=== PATIENT | female | born 1950 | race Caucasian/White ===

== ENCOUNTER 2017-04-13 09:32 | Emergency (ER) | payer MEDICAID, OTHER ==
[~2017-04-13] VITALS: Ht 167.6 cm; Wt 56.2 kg
[2017-04-13 09:52] VITALS: BP 113/61
--- NOTE | 2017-04-13 09:52 | NUR ---
PATIENT BIB BY CAREGIVER FROM [facility] FOR A CHECK UP. PT'S CAREGIVER STATES THAT PATIENT FELL YESTERDAY WHILE TRYING TO MOVE FROM HER BED TO HER WHEELCHAIR. PATIENT HIT HER HEAD FROM THE FALL. BRUISING AND SWELLING NOTED TO THE RIGHT FOREHEAD. DENIES N/V/D; SKIN IS PINK/WARM/DRY; AAOX4 WITH EVEN AND STEADY GAIT; LUNGS CLEAR BL; HR EVEN AND REGULAR; PT DENIES ANY FEVER, CP, SOB, OR COUGH AT THIS TIME; PATIENT STATES PAIN OF 0/10 AT THIS TIME; VSS; PATIENT POSITIONED FOR COMFORT; HOB ELEVATED; BEDRAILS UP X2; BED DOWN. ER MD MADE AWARE OF PT STATUS.
[2017-04-13 11:20] VITALS: BP 130/68
--- NOTE | 2017-04-13 11:20 | NUR ---
Patient discharged with v/s stable. Written and verbal after care instructions given and explained. Patient verbalized understanding. Ambulatory with steady gait. All questions addressed prior to discharge. Advised to follow up with PMD.
== END 2017-04-13 11:20 | disposition home or self-care (01) ==
LOC: MED 09:32
DX: S00.12XA Contusion of left eyelid and periocular area, initial encounter (principal); I10 Essential (primary) hypertension; W05.0XXA Fall from non-moving wheelchair, initial encounter; Y93.89 Activity, other specified; Y92.89 Other specified places as the place of occurrence of the external cause; Y99.8 Other external cause status
CPT/HCPCS: 70450; 99284

== ENCOUNTER 2019-04-20 10:16 | Emergency (ER) | payer MEDICARE, MEDICAID ==
[~2019-04-20] VITALS: Ht 154.9 cm; Wt 54.4 kg
--- NOTE | 2019-04-20 10:27 | NUR ---
PT WHEELCHAIRED TO ER BED 10
[2019-04-20 10:34] VITALS: BP 134/81
--- NOTE | 2019-04-20 10:41 | NUR ---
RECEIVED A 68/F VIA WHEELCHAIR FROM TRIAGE. PT PRESENTS WITH CAREGIVER DUE TO INTELLECUTAL DISABILITY. CAREGIVER REPORTS RT LOWER LEG REDNESS AND SWELLING OVER THE PAST WEEK; REPORTS SUDDEN DECREASE IN SWELLING AND REDNESS YESTERDAY. NO REDNESS/SWELLING NOTED TO LEG. IN BED FOR MSE, WITH CAREGIVER AT BEDSIDE.
--- NOTE | 2019-04-20 11:50 | NUR ---
ALL IMAGING RESULTS BACK. INFORMED DR GALVEZ.
[2019-04-20 12:26] VITALS: BP 134/81
--- NOTE | 2019-04-20 12:27 | NUR ---
Patient discharged with v/s stable. Written and verbal after care instructions given and explained. Patient alert, oriented and verbalized understanding of instructions. Wheel Chair Assisted with by caregiver. All questions addressed prior to discharge. ID band removed. Patient advised to follow up with PMD. Rx of MOTRIN given. Patient educated on indication of medication including possible reaction and side effects. Opportunity to ask questions provided and answered.
== END 2019-04-20 12:27 | disposition home or self-care (01) ==
LOC: MED 10:16
DX: R60.0 Localized edema (principal); I10 Essential (primary) hypertension
CPT/HCPCS: 73590; 93971; 99284; Q0092

== ENCOUNTER 2021-12-06 06:55 | Emergency (ER) | payer MEDICARE, MEDICAID ==
[~2021-12-06] VITALS: Ht 162.6 cm; Wt 46.4 kg
[2021-12-06 07:22] VITALS: BP 123/76
--- NOTE | 2021-12-06 07:35 | NUR ---
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 PER TERRITORY ACCOUNT REPRESENTATIVE, NO OTHER EPISODE OF VOMITING NOTED, PT RESPONDING AT BASELINE NK[facility] PMH: MILD ID, EPILEPSY, NEUROFIBROMATOSIS
--- NOTE | 2021-12-06 07:48 | NUR ---
PT WC ASSISTED TO BED 10 WITH TRIP FOLLOWER
--- NOTE | 2021-12-06 08:24 | NUR ---
Lab at bedside
[2021-12-06 08:47] LABS: BASOPHILS # (AUTO) 0.1 K/uL (0.00-0.22); BASOPHILS % (AUTO) 0.9 % (0.0-2.0); EOSINOPHILS # (AUTO) 0.1 K/uL (0-0.4); HEMATOCRIT 42.5 % (36-48); HEMOGLOBIN 14.4 g/dL (12.0-16.0); LYMPHOCYTES # (AUTO) 1.3 K/uL (2.5-16.5); LYMPHOCYTES % (AUTO) 14.5 % (20.5-51.1); MEAN CORPUSCULAR HEMOGLOBIN 35 pg (27-31); MEAN CORPUSCULAR HGB CONC 34 g/dL (33-37); MEAN CORPUSCULAR VOLUME 101.8 fL (80-94); MONOCYTES # (AUTO) 0.4 K/uL (0.8-1.0); MONOCYTES % (AUTO) 4.7 % (1.7-9.3); NEUTROPHILS # (AUTO) 6.9 K/uL (1.8-7.7); NEUTROPHILS % (AUTO) 78.9 % (42.2-75.2); PLATELET COUNT (AUTO) 354 K/uL (140-450); RED BLOOD CELL COUNT(AUTO) 4.18 MIL/uL (4.20-5.40); RED CELL DISTRIBUTION WIDTH 13.3 % (11.6-13.7); WHITE BLOOD COUNT (AUTO) 8.7 K/uL (4.8-10.8)
[2021-12-06 08:53] LABS: ALBUMIN 3.1 g/dL (3.4-5.0); CREATININE 0.6 mg/dL (0.6-1.3); TOTAL BILIRUBIN 0.2 mg/dL (0.0-1.0)
[2021-12-06] MEDS ORDERED: FAMO-90 PO ×2 (09:18→09:33)
[2021-12-06 09:26] VITALS: BP 117/72
--- NOTE | 2021-12-06 09:35 | NUR ---
Patient discharged with v/s stable. Written and verbal after care instructions given and explained. Patient alert, oriented and verbalized understanding of instructions. Wheel Chair Assisted with by caregiver. All questions addressed prior to discharge. ID band removed. Patient advised to follow up with PMD. Rx of Pepcid given. Patient educated on indication of medication including possible reaction and side effects. Opportunity to ask questions provided and answered. Copy of lab results handed to jaylen Grove. Pharmacy/prescription updated to new pharmacy provided by caregiver.
== END 2021-12-06 09:35 | disposition home or self-care (01) ==
LOC: MED 06:55
DX: K92.0 Hematemesis (principal); G40.909 Epilepsy, unspecified, not intractable, without status epilepticus; Z79.899 Other long term (current) drug therapy
CPT/HCPCS: 36415; 80053; 85025; 85610; 85730; 99283

== ENCOUNTER 2022-12-04 16:46 | Inpatient (IN) | payer MEDICAID, MEDICARE ==
[~2022-12-04] VITALS: Ht 162.6 cm; Wt 75.7 kg
[~2022-12-04 16:46] MED LIST: FAMO-90 PO
[2022-12-04 17:00] VITALS: BP 118/78; PULSE 87; RESP 17; TEMP 97.7; O2SAT 98
[2022-12-04 17:33] LABS: BASOPHILS % (AUTO) 0.4 % (0.0-2.0); EOSINOPHILS # (AUTO) 0.2 K/uL (0-0.4); HEMATOCRIT 43.5 % (36-48); HEMOGLOBIN 14.5 g/dL (12.0-16.0); LYMPHOCYTES # (AUTO) 1.8 K/uL (2.5-16.5); LYMPHOCYTES % (AUTO) 22.3 % (20.5-51.1); MEAN CORPUSCULAR HEMOGLOBIN 33 pg (27-31); MEAN CORPUSCULAR HGB CONC 33 g/dL (33-37); MEAN CORPUSCULAR VOLUME 99.1 fL (80-94); MONOCYTES # (AUTO) 0.7 K/uL (0.8-1.0); MONOCYTES % (AUTO) 8.8 % (1.7-9.3); NEUTROPHILS # (AUTO) 5.3 K/uL (1.8-7.7); NEUTROPHILS % (AUTO) 66.5 % (42.2-75.2); PLATELET COUNT (AUTO) 339 K/uL (140-450); RED BLOOD CELL COUNT(AUTO) 4.39 MIL/uL (4.20-5.40); RED CELL DISTRIBUTION WIDTH 13.6 % (11.6-13.7)
[2022-12-04 17:52] LABS: ALANINE AMINOTRANSFERASE 23 U/L (12-78); ALBUMIN 3.6 g/dL (3.4-5.0); ALKALINE PHOSPHATASE 75 U/L (50-136); ANION GAP 10.3 (8-16); ASPARTATE AMINOTRANSFERASE 16 U/L (15-37); CALCIUM 9.1 mg/dL (8.5-10.1); CARBON DIOXIDE 28.3 mmol/L (21-32); CHLORIDE 101 mmol/L (98-107); CREATININE 0.7 mg/dL (0.6-1.3); GLUCOSE 145 mg/dL (74-106); POTASSIUM 3.6 mmol/L (3.5-5.1); SODIUM SERUM 136 mmol/L (136-145); TOTAL BILIRUBIN 0.2 mg/dL (0.0-1.0); TOTAL PROTEIN, SERUM 7.7 g/dL (6.4-8.2); UREA NITROGEN, BLOOD 30 mg/dL (7-18)
[2022-12-04 18:47] LABS: APPEARANCE,URINE CLEAR (CLEAR); BILIRUBIN,URINE NEGATIVE (NEGATIVE); BLOOD, URINE NEGATIVE (NEGATIVE); COLOR,URINE YELLOW (YELLOW); LEUKOCYTE ESTERASE ,URINE NEGATIVE (NEGATIVE); NITRITE, URINE NEGATIVE (NEGATIVE); PH,URINE 6.5 (5.0-9.0); PROTEIN,URINE NEGATIVE (NEGATIVE); UGLUCOSE NEGATIVE (NEGATIVE); UROBILINOGEN,URINE 0.2 EU/dL (0.2 - 1)
[2022-12-04] MEDS ORDERED: CEFEPIME 1,000 MG in DEXTROSE 5% 50 ML IV ONE (19:05)
[2022-12-04] MEDS ORDERED: POTASSIUM CHLORIDE 10 MEQ TABER PO PRN (19:40)
[2022-12-04] MEDS ORDERED: ONDANSETRON 4 MG/2 ML VIAL IVP PRN (19:40)
[2022-12-04] MEDS ORDERED: ACETAMINOPHEN 325 MG TAB PO PRN (19:40)
[2022-12-04] MEDS ORDERED: MAG SULF 2000 MG/WATER PREMIX 50 ML IV PRN (19:40)
[2022-12-04] MEDS ORDERED: LORazepam 2 MG/ML VIAL IVP PRN (19:40)
[2022-12-04] MEDS ORDERED: MORPHINE SULFATE 2 MG/ML SYR IVP PRN (19:40)
[2022-12-04] MEDS ORDERED: ZOLPIDEM 10 MG TAB PO PRN (19:40)
[2022-12-04] MEDS ORDERED: DOCUSATE SODIUM 100 MG GELCAP PO PRN (19:40)
[2022-12-04] MEDS ORDERED: ALBUTEROL 0.083% 2.5 MG/3 ML NEBU INH PRN (19:40)
[2022-12-04] MEDS ORDERED: DEXTROSE 50% 50 ML SYR IVP PRN (19:45)
[2022-12-04] MEDS ORDERED: INSULIN LISPRO SLIDING SCALE 100 UNITS/ML VIAL SUBQ PRN (19:45)
[2022-12-04] MEDS ORDERED: CEFEPIME 1,000 MG VIAL ONE (21:24)
[2022-12-04 22:00] VITALS: BP 117/65; PULSE 81; PULSE 84; RESP 18; TEMP 98; O2SAT 97
[2022-12-04] MEDS ORDERED: PIPERACILLIN/TAZOBACTAM 3.375 GM VIAL IV ONE (22:07)
[2022-12-04] MEDS: PIPERACILLIN/TAZOBACTAM 3.375 GM in DEXTROSE 5% 50 ML IV SCH (22:19)
[2022-12-04] MEDS: BLOOD GLUCOSE MONITORING 1 DEV DEV FS SCH (22:33)
[2022-12-05] VITALS (12 sets, daily range): BP systolic 111–137; BP diastolic 52–81; PULSE 72–100; RESP 16–20; TEMP 97.2–98.5; O2SAT 92–99
[2022-12-05] MEDS ORDERED: PIPERACILLIN/TAZOBACTAM 3.375 GM VIAL IV ONE (05:09)
[2022-12-05] MEDS: PIPERACILLIN/TAZOBACTAM 3.375 GM in DEXTROSE 5% 50 ML IV SCH ×3 (05:37→21:50)
[2022-12-05] MEDS: BLOOD GLUCOSE MONITORING 1 DEV DEV FS SCH ×4 (05:50→21:57)
[2022-12-05 06:31] LABS: BASOPHILS % (AUTO) 0.7 % (0.0-2.0); EOSINOPHILS # (AUTO) 0.1 K/uL (0-0.4); EOSINOPHILS % (AUTO) 1.8 % (0.0-4.0); HEMATOCRIT 40.4 % (36-48); HEMOGLOBIN 13.8 g/dL (12.0-16.0); LYMPHOCYTES # (AUTO) 1.4 K/uL (2.5-16.5); LYMPHOCYTES % (AUTO) 18.7 % (20.5-51.1); MEAN CORPUSCULAR HEMOGLOBIN 34 pg (27-31); MEAN CORPUSCULAR HGB CONC 34 g/dL (33-37); MEAN CORPUSCULAR VOLUME 98.1 fL (80-94); MONOCYTES # (AUTO) 0.7 K/uL (0.8-1.0); NEUTROPHILS # (AUTO) 5.2 K/uL (1.8-7.7); NEUTROPHILS % (AUTO) 69.8 % (42.2-75.2); PLATELET COUNT (AUTO) 343 K/uL (140-450); RED BLOOD CELL COUNT(AUTO) 4.11 MIL/uL (4.20-5.40); RED CELL DISTRIBUTION WIDTH 13.6 % (11.6-13.7); WHITE BLOOD COUNT (AUTO) 7.4 K/uL (4.8-10.8)
[2022-12-05 06:37] LABS: ANION GAP 8.5 (8-16); CARBON DIOXIDE 29.2 mmol/L (21-32); CHLORIDE 103 mmol/L (98-107); CREATININE 0.6 mg/dL (0.6-1.3); GLUCOSE 93 mg/dL (74-106); POTASSIUM 3.7 mmol/L (3.5-5.1); SODIUM SERUM 137 mmol/L (136-145); UREA NITROGEN, BLOOD 21 mg/dL (7-18)
[2022-12-06] VITALS (12 sets, daily range): BP systolic 111–131; BP diastolic 55–73; PULSE 77–101; RESP 16–20; TEMP 97.6–98.5; O2SAT 95–100
[2022-12-06] MEDS: PIPERACILLIN/TAZOBACTAM 3.375 GM in DEXTROSE 5% 50 ML IV SCH ×3 (05:53→20:23)
[2022-12-06 06:51] LABS: BASOPHILS # (AUTO) 0.1 K/uL (0.00-0.22); EOSINOPHILS # (AUTO) 0.2 K/uL (0-0.4); EOSINOPHILS % (AUTO) 1.8 % (0.0-4.0); HEMATOCRIT 41.6 % (36-48); HEMOGLOBIN 14.1 g/dL (12.0-16.0); LYMPHOCYTES # (AUTO) 1.9 K/uL (2.5-16.5); LYMPHOCYTES % (AUTO) 21.4 % (20.5-51.1); MEAN CORPUSCULAR HEMOGLOBIN 33 pg (27-31); MEAN CORPUSCULAR HGB CONC 34 g/dL (33-37); MEAN CORPUSCULAR VOLUME 98.5 fL (80-94); MONOCYTES # (AUTO) 0.8 K/uL (0.8-1.0); MONOCYTES % (AUTO) 9.4 % (1.7-9.3); NEUTROPHILS # (AUTO) 5.8 K/uL (1.8-7.7); NEUTROPHILS % (AUTO) 66.4 % (42.2-75.2); PLATELET COUNT (AUTO) 338 K/uL (140-450); RED BLOOD CELL COUNT(AUTO) 4.22 MIL/uL (4.20-5.40); RED CELL DISTRIBUTION WIDTH 13.6 % (11.6-13.7); WHITE BLOOD COUNT (AUTO) 8.7 K/uL (4.8-10.8)
[2022-12-06] MEDS: BLOOD GLUCOSE MONITORING 1 DEV DEV FS SCH ×4 (07:01→20:27)
[2022-12-06 07:12] LABS: ANION GAP 10.4 (8-16); CALCIUM 9.2 mg/dL (8.5-10.1); CARBON DIOXIDE 29.9 mmol/L (21-32); CHLORIDE 105 mmol/L (98-107); CREATININE 0.7 mg/dL (0.6-1.3); GLUCOSE 98 mg/dL (74-106); POTASSIUM 4.3 mmol/L (3.5-5.1); SODIUM SERUM 141 mmol/L (136-145); UREA NITROGEN, BLOOD 18 mg/dL (7-18)
[2022-12-07 04:00] VITALS: BP 128/62; PULSE 97; RESP 18; TEMP 97.8; O2SAT 98
[2022-12-07] MEDS: PIPERACILLIN/TAZOBACTAM 3.375 GM in DEXTROSE 5% 50 ML IV SCH ×2 (05:39→13:33)
[2022-12-07] MEDS: BLOOD GLUCOSE MONITORING 1 DEV DEV FS SCH ×2 (06:40→11:29)
[2022-12-07 07:35] VITALS: O2SAT 96
[2022-12-07 07:36] LABS: BASOPHILS % (AUTO) 0.4 % (0.0-2.0); EOSINOPHILS % (AUTO) 0.4 % (0.0-4.0); HEMATOCRIT 41.7 % (36-48); HEMOGLOBIN 14.2 g/dL (12.0-16.0); LYMPHOCYTES # (AUTO) 1.4 K/uL (2.5-16.5); MEAN CORPUSCULAR HEMOGLOBIN 33 pg (27-31); MEAN CORPUSCULAR HGB CONC 34 g/dL (33-37); MONOCYTES # (AUTO) 0.8 K/uL (0.8-1.0); MONOCYTES % (AUTO) 8.2 % (1.7-9.3); NEUTROPHILS # (AUTO) 7.2 K/uL (1.8-7.7); PLATELET COUNT (AUTO) 363 K/uL (140-450); RED BLOOD CELL COUNT(AUTO) 4.26 MIL/uL (4.20-5.40); RED CELL DISTRIBUTION WIDTH 13.5 % (11.6-13.7); WHITE BLOOD COUNT (AUTO) 9.5 K/uL (4.8-10.8)
[2022-12-07 08:00] VITALS: BP 128/83; PULSE 89; RESP 18; TEMP 97.8; O2SAT 97; O2SAT 98
[2022-12-07 08:04] LABS: ANION GAP 12.2 (8-16); CALCIUM 9.1 mg/dL (8.5-10.1); CARBON DIOXIDE 28.7 mmol/L (21-32); CHLORIDE 106 mmol/L (98-107); CREATININE 0.7 mg/dL (0.6-1.3); GLUCOSE 139 mg/dL (74-106); POTASSIUM 3.9 mmol/L (3.5-5.1); SODIUM SERUM 143 mmol/L (136-145); UREA NITROGEN, BLOOD 21 mg/dL (7-18)
[2022-12-07] MEDS ORDERED: LEVO-481 PO (13:40)
== END 2022-12-07 14:55 | disposition home or self-care (01) | DRG 139 ==
LOC: MED 16:46 → MTU 19:40
PROVIDERS: ADMIT Family Medicine; ATTEND Family Medicine
DX: J18.9 Pneumonia, unspecified organism (principal); N17.0 Acute kidney failure with tubular necrosis; R53.2 Functional quadriplegia; G80.9 Cerebral palsy, unspecified; G40.909 Epilepsy, unspecified, not intractable, without status epilepticus; Q85.00 Neurofibromatosis, unspecified
CPT/HCPCS: 36415; 71045; 80048; 80053; 81003; 82948; 83735; 84484; 85025; 87040; 87081; 93005; 96365; 99285; J0692; J2543; J7060

== ENCOUNTER 2023-01-04 15:47 | Emergency (ER) | payer MEDICAID, MEDICARE ==
[~2023-01-04] VITALS: Ht 162.6 cm; Wt 53.1 kg
[~2023-01-04 15:47] MED LIST changes: +LEVO-481 PO
[2023-01-04 16:23] VITALS: BP 113/57; PULSE 84; RESP 16; TEMP 97.9; O2SAT 97
[2023-01-04 17:53] VITALS: BP 113/57; PULSE 84; RESP 16; TEMP 97.9; O2SAT 97
== END 2023-01-04 17:53 | disposition home or self-care (01) ==
LOC: MED 15:47
DX: S80.01XA Contusion of right knee, initial encounter (principal); I10 Essential (primary) hypertension; G40.909 Epilepsy, unspecified, not intractable, without status epilepticus; Z79.899 Other long term (current) drug therapy; W18.30XA Fall on same level, unspecified, initial encounter; Y93.89 Activity, other specified; Y92.89 Other specified places as the place of occurrence of the external cause; Y99.8 Other external cause status
CPT/HCPCS: 73562; 99283

== ENCOUNTER 2023-01-20 21:14 | Inpatient (IN) | payer MEDICAID, MEDICARE ==
[~2023-01-20] VITALS: Ht 167.6 cm; Wt 51.7 kg
[2023-01-20 21:19] VITALS: BP 108/70; PULSE 94; RESP 14; TEMP 97.9; O2SAT 97
[2023-01-21 00:52] LABS: BASOPHILS # (AUTO) 0.1 K/uL (0.00-0.22); BASOPHILS % (AUTO) 0.4 % (0.0-2.0); HEMOGLOBIN 14.7 g/dL (12.0-16.0); LYMPHOCYTES # (AUTO) 1.1 K/uL (2.5-16.5); LYMPHOCYTES % (AUTO) 6.4 % (20.5-51.1); MEAN CORPUSCULAR HEMOGLOBIN 33 pg (27-31); MEAN CORPUSCULAR HGB CONC 34 g/dL (33-37); MEAN CORPUSCULAR VOLUME 97.2 fL (80-94); MONOCYTES # (AUTO) 0.7 K/uL (0.8-1.0); MONOCYTES % (AUTO) 4.1 % (1.7-9.3); NEUTROPHILS # (AUTO) 16.1 K/uL (1.8-7.7); NEUTROPHILS % (AUTO) 89.1 % (42.2-75.2); PLATELET COUNT (AUTO) 419 K/uL (140-450); RED BLOOD CELL COUNT(AUTO) 4.43 MIL/uL (4.20-5.40); RED CELL DISTRIBUTION WIDTH 13.2 % (11.6-13.7); WHITE BLOOD COUNT (AUTO) 18.1 K/uL (4.8-10.8)
[2023-01-21 01:20] LABS: ALANINE AMINOTRANSFERASE 26 U/L (12-78); ALBUMIN 3.5 g/dL (3.4-5.0); ALKALINE PHOSPHATASE 58 U/L (50-136); ANION GAP 12.6 (8-16); ASPARTATE AMINOTRANSFERASE 37 U/L (15-37); CARBON DIOXIDE 28.9 mmol/L (21-32); CHLORIDE 97 mmol/L (98-107); CREATININE 0.6 mg/dL (0.6-1.3); GLUCOSE 148 mg/dL (74-106); POTASSIUM 4.5 mmol/L (3.5-5.1); SODIUM SERUM 134 mmol/L (136-145); TOTAL BILIRUBIN 0.5 mg/dL (0.0-1.0); UREA NITROGEN, BLOOD 18 mg/dL (7-18)
[2023-01-21 01:22] LABS: APPEARANCE,URINE CLEAR (CLEAR); BILIRUBIN,URINE NEGATIVE (NEGATIVE); BLOOD, URINE NEGATIVE (NEGATIVE); COLOR,URINE YELLOW (YELLOW); LEUKOCYTE ESTERASE ,URINE NEGATIVE (NEGATIVE); NITRITE, URINE NEGATIVE (NEGATIVE); PH,URINE 7.5 (5.0-9.0); PROTEIN,URINE NEGATIVE (NEGATIVE); UGLUCOSE NEGATIVE (NEGATIVE); UROBILINOGEN,URINE 0.2 EU/dL (0.2 - 1)
[2023-01-21] MEDS ORDERED: AZITHROMYCIN 1,000 MG in DEXTROSE 5% 500 ML IV ONE (01:55)
[2023-01-21 02:17] LABS: BLOOD GAS BASE EXCESS 4.2 mmol/L (-2.0-2.0); BLOOD GAS HCO3 28.1 mmol/L (22-26); BLOOD GAS PCO2 39.7 mmHg (35-45); BLOOD GAS PO2 65.7 mmHg (75-100)
[2023-01-21 02:18] LABS: BLOOD GAS O2 SAT% 94.2 % (92.0-98.5)
[2023-01-21] MEDS ORDERED: CHOL200022 PO (03:17)
[2023-01-21] MEDS ORDERED: PHEN100C3 PO (03:17)
[2023-01-21] MEDS ORDERED: [UNRECOGNIZED DRUG - CODE] PO (03:17)
[2023-01-21] MEDS ORDERED: ALEN70TA85 PO (03:17)
[2023-01-21] MEDS ORDERED: ZONI100C97 PO (03:17)
[2023-01-21] MEDS ORDERED: HYDR12.51 PO (03:17)
[2023-01-21] MEDS ORDERED: CALC-575 PO (03:17)
[2023-01-21] MEDS ORDERED: IBUP200C97 PO (03:17)
[2023-01-21] MEDS ORDERED: MULT-2247 PO (03:17)
[2023-01-21] MEDS ORDERED: LORA-476 PO (03:17)
[2023-01-21] MEDS ORDERED: CARB200T4 PO (03:17)
[2023-01-21] MEDS ORDERED: OMEP40EC23 PO (03:17)
[2023-01-21] MEDS ORDERED: AZITHROMYCIN 500 MG INJ VIAL IV ONE (03:21)
[2023-01-21] MEDS ORDERED: cefTRIAXone 1,000 MG VIAL ONE (03:21)
[2023-01-21] MEDS ORDERED: DOCUSATE SODIUM 100 MG GELCAP PO PRN (04:25)
[2023-01-21] MEDS ORDERED: ZOLPIDEM 5 MG TAB PO PRN (04:25)
[2023-01-21] MEDS ORDERED: HYDROcodone/APAP 7.5/325 MG 1 TAB PO PRN (04:25)
[2023-01-21] MEDS ORDERED: guaiFENesin DM 200/20 MG-10 ML 10 ML UDC PO PRN (04:25)
[2023-01-21] MEDS ORDERED: ACETAMINOPHEN 325 MG TAB PO PRN (04:25)
[2023-01-21] MEDS ORDERED: ONDANSETRON 4 MG/2 ML VIAL IM/IVP PRN (04:25)
[2023-01-21] MEDS ORDERED: POTASSIUM CHLORIDE 10 MEQ TABER PO PRN (04:25)
[2023-01-21] MEDS: NACL 0.9% 1,000 ML IV SCH ×2 (04:57→21:05)
[2023-01-21 07:30] VITALS: O2SAT 98
[2023-01-21] MEDS: PANTOPRAZOLE 40 MG TABEC PO SCH (09:00)
[2023-01-21] MEDS ORDERED: CEFEPIME 1,000 MG VIAL ONE (10:10)
[2023-01-21] MEDS: CEFEPIME 1,000 MG in DEXTROSE 5% 50 ML IV SCH (10:25)
[2023-01-21] MEDS: carBAMazepine 200 MG TAB PO SCH ×2 (10:43→20:11)
[2023-01-21] MEDS: PHENYTOIN 100 MG CAPER PO SCH (10:44)
[2023-01-21 16:12] VITALS: BP 124/68; PULSE 76; PULSE 86; RESP 18; TEMP 96.6; O2SAT 99
[2023-01-21 16:43] VITALS: RESP 20; O2SAT 98
[2023-01-21 20:00] VITALS: BP 121/66; PULSE 92; RESP 18; TEMP 97.4; O2SAT 98
[2023-01-21 20:08] VITALS: PULSE 92
[2023-01-22] VITALS (8 sets, daily range): BP systolic 98–133; BP diastolic 55–72; PULSE 68–98; RESP 17–19; TEMP 97.7–98.7; O2SAT 97–99
[2023-01-22] MEDS: NACL 0.9% 1,000 ML IV SCH (01:13)
[2023-01-22 07:11] LABS: BASOPHILS % (AUTO) 0.6 % (0.0-2.0); EOSINOPHILS # (AUTO) 0.2 K/uL (0-0.4); EOSINOPHILS % (AUTO) 3.1 % (0.0-4.0); HEMATOCRIT 38.5 % (36-48); LYMPHOCYTES # (AUTO) 1.2 K/uL (2.5-16.5); LYMPHOCYTES % (AUTO) 16.1 % (20.5-51.1); MEAN CORPUSCULAR HEMOGLOBIN 33 pg (27-31); MEAN CORPUSCULAR HGB CONC 34 g/dL (33-37); MEAN CORPUSCULAR VOLUME 97.9 fL (80-94); MONOCYTES # (AUTO) 0.5 K/uL (0.8-1.0); MONOCYTES % (AUTO) 7.5 % (1.7-9.3); NEUTROPHILS # (AUTO) 5.3 K/uL (1.8-7.7); NEUTROPHILS % (AUTO) 72.7 % (42.2-75.2); PLATELET COUNT (AUTO) 356 K/uL (140-450); RED BLOOD CELL COUNT(AUTO) 3.93 MIL/uL (4.20-5.40); RED CELL DISTRIBUTION WIDTH 13.5 % (11.6-13.7); WHITE BLOOD COUNT (AUTO) 7.3 K/uL (4.8-10.8)
[2023-01-22 07:32] LABS: ANION GAP 11.8 (8-16); CARBON DIOXIDE 26.1 mmol/L (21-32); CHLORIDE 107 mmol/L (98-107); CREATININE 0.5 mg/dL (0.6-1.3); GLUCOSE 90 mg/dL (74-106); POTASSIUM 3.9 mmol/L (3.5-5.1); SODIUM SERUM 141 mmol/L (136-145); UREA NITROGEN, BLOOD 18 mg/dL (7-18)
[2023-01-22] MEDS: carBAMazepine 200 MG TAB PO SCH ×2 (08:38→20:33)
[2023-01-22] MEDS: PANTOPRAZOLE 40 MG TABEC PO SCH (08:38)
[2023-01-22] MEDS: PHENYTOIN 100 MG CAPER PO SCH (08:39)
[2023-01-22] MEDS: CEFEPIME 1,000 MG in DEXTROSE 5% 50 ML IV SCH (10:38)
[2023-01-23] VITALS: BP 125/66; PULSE 82; PULSE 87; RESP 19; TEMP 98.5; O2SAT 97
[2023-01-23 03:57] VITALS: PULSE 83
[2023-01-23 04:00] VITALS: BP 124/65; PULSE 71; RESP 19; TEMP 98.5; O2SAT 98
[2023-01-23 07:14] LABS: BASOPHILS # (AUTO) 0.1 K/uL (0.00-0.22); BASOPHILS % (AUTO) 0.9 % (0.0-2.0); EOSINOPHILS # (AUTO) 0.3 K/uL (0-0.4); EOSINOPHILS % (AUTO) 3.5 % (0.0-4.0); HEMATOCRIT 37.8 % (36-48); HEMOGLOBIN 12.7 g/dL (12.0-16.0); LYMPHOCYTES # (AUTO) 1.5 K/uL (2.5-16.5); LYMPHOCYTES % (AUTO) 19.1 % (20.5-51.1); MEAN CORPUSCULAR HEMOGLOBIN 33 pg (27-31); MEAN CORPUSCULAR HGB CONC 34 g/dL (33-37); MEAN CORPUSCULAR VOLUME 98.3 fL (80-94); MONOCYTES # (AUTO) 0.7 K/uL (0.8-1.0); MONOCYTES % (AUTO) 8.2 % (1.7-9.3); NEUTROPHILS # (AUTO) 5.5 K/uL (1.8-7.7); NEUTROPHILS % (AUTO) 68.3 % (42.2-75.2); PLATELET COUNT (AUTO) 377 K/uL (140-450); RED BLOOD CELL COUNT(AUTO) 3.85 MIL/uL (4.20-5.40); RED CELL DISTRIBUTION WIDTH 13.1 % (11.6-13.7); WHITE BLOOD COUNT (AUTO) 8.1 K/uL (4.8-10.8)
[2023-01-23 07:15] LABS: ANION GAP 8.9 (8-16); CALCIUM 8.2 mg/dL (8.5-10.1); CARBON DIOXIDE 27.9 mmol/L (21-32); CHLORIDE 107 mmol/L (98-107); CREATININE 0.5 mg/dL (0.6-1.3); GLUCOSE 98 mg/dL (74-106); POTASSIUM 3.8 mmol/L (3.5-5.1); SODIUM SERUM 140 mmol/L (136-145); UREA NITROGEN, BLOOD 19 mg/dL (7-18)
[2023-01-23 08:00] VITALS: BP 133/84; PULSE 70; PULSE 83; RESP 17; TEMP 99; O2SAT 96
[2023-01-23] MEDS: CEFEPIME 1,000 MG in DEXTROSE 5% 50 ML IV SCH (08:13)
[2023-01-23] MEDS: PHENYTOIN 100 MG CAPER PO SCH (08:45)
[2023-01-23] MEDS: PANTOPRAZOLE 40 MG TABEC PO SCH (08:45)
[2023-01-23] MEDS: carBAMazepine 200 MG TAB PO SCH (08:45)
[2023-01-23] MEDS ORDERED: LEVO-481 PO (10:12)
== END 2023-01-23 15:20 | disposition home or self-care (01) | DRG 720 ==
LOC: MED 21:14 → MTU 01-21 04:24
PROVIDERS: ADMIT Student in an Organized Health Care Education/Training Program; ATTEND Student in an Organized Health Care Education/Training Program
DX: A41.9 Sepsis, unspecified organism (principal); G93.41 Metabolic encephalopathy; E44.0 Moderate protein-calorie malnutrition; E87.3 Alkalosis; Q85.00 Neurofibromatosis, unspecified; N39.0 Urinary tract infection, site not specified; G40.909 Epilepsy, unspecified, not intractable, without status epilepticus; I10 Essential (primary) hypertension; Z79.1 Long term (current) use of non-steroidal anti-inflammatories (NSAID); Z79.899 Other long term (current) drug therapy; G80.9 Cerebral palsy, unspecified; B96.1 Klebsiella pneumoniae [K. pneumoniae] as the cause of diseases classified elsewhere; Z68.1 Body mass index [BMI] 19.9 or less, adult
CPT/HCPCS: 36415; 36600; 71045; 80048; 80053; 81003; 82948; 83605; 85025; 87040; 87081; 87086; 93005; 99285; J0456; J0692; J0696; J1644; J7060; Q0092